=== PATIENT | female | born 1970 | race Caucasian/White ===

== ENCOUNTER 2018-09-11 05:03 | Day surgery (SDC) | payer MEDICARE, MEDICAID ==
[2018-09-09 15:45] LABS: BASOPHILS 0.4 % (0-2); EOSINOPHILS 2.5 % (0-7); HEMATOCRIT 38.7 % (36.0-48.0); HEMOGLOBIN 12.8 g/dL (12-16); IMMATURE GRANULOCYTES 0.1 % (0-5); LYMPHOCYTES 28.9 % (15-50); MCH 31.4 pg (26.0-34.0); MCHC 33.1 g/dL (31.0-37.0); MCV 95.1 fL (80.0-100.0); MEAN PLATELET VOLUME 8.7 fL (7.4-10.4); MONOCYTES 6.8 % (2-11); NEUTROPHILS 61.3 % (40-80); PLATELET COUNT 308 10x3/uL (130-400); RBC 4.07 10x6/uL (4.00-5.40); RDW 14.2 % (11.5-14.5); WBC 10.2 10x3/uL (4.8-10.8)
[2018-09-09 16:02] LABS: ANION GAP 13.1 mmol/L (8-16); CALCIUM 8.9 mg/dL (8.5-10.1); CREATININE - SERUM 1.4 mg/dL (0.6-1.3); POTASSIUM - SERUM 4.1 mmol/L (3.5-5.1)
[~2018-09-11] VITALS: Ht 167.6 cm; Wt 78.5 kg
[~2018-09-11 05:03] MED LIST: ATIVAN0.5 MG PO; BAYER CHEWABLE81 MG PO; CELEXA20 MG PO; FENOFIBRATE134 MG PO; HYDROCHLOROTHIA25 MG PO; IMITREX50 MG PO; KEPPRA1000 MG PO; LAMICTAL100 MG PO; LISINOPRIL10 MG PO; RANITIDINE HCL150 M1 PO; TOPAMAX50 MG PO; ZOCOR40 MG PO
[2018-09-11] MEDS ORDERED: EQUATE ARTHRITIS (06:16)
[2018-09-11 06:21] VITALS: BP 113/71; BMI 27.9
[2018-09-11 06:39] LABS: HCG URINE NEGATIVE (NEGATIVE)
[2018-09-11 06:44] VITALS: Ht 167.6 cm; Wt 78.5 kg
--- NOTE | 2018-09-11 08:40 | NUR ---
REC'D FROM RR. FAMILY AT BEDSIDE. UP TO BATHROOM. VOIDED. COFFEE BROUGHT TO PATIENT.
--- NOTE | 2018-09-11 08:56 | NUR ---
MARY HAUSERWali SERVED TO PATIENT.
--- NOTE | 2018-09-11 09:10 | NUR ---
SPOUSE AT BEDSIDE. EATING FL DIET.
--- NOTE | 2018-09-11 09:30 | NUR ---
TOLERATED FL DIET. IV DC'D WITH CATHETER INTACT. WRITTEN AND VERBAL DC INST. GIVEN TO PT ALONG WITH RX. VERBALIZED UNDERSTANDING.
--- NOTE | 2018-09-11 09:45 | NUR ---
DC'D HOME WITH FAMILY VIA PRIVATE VEHICLE. STABLE AT TIME OF DC.
== END 2018-09-11 09:45 | disposition home or self-care (01) ==
LOC: D.PAN 05:03
PROVIDERS: Anesthesiology; ATTEND Obstetrics & Gynecology
DX: N92.0 Excessive and frequent menstruation with regular cycle (principal); F32.9 Major depressive disorder, single episode, unspecified; G40.909 Epilepsy, unspecified, not intractable, without status epilepticus; K21.9 Gastro-esophageal reflux disease without esophagitis; I10 Essential (primary) hypertension

== ENCOUNTER → 2018-10-28 12:26 | Outpatient (CLI) | payer MEDICARE ==
[2018-09-11 06:44] VITALS: BMI 29.7
[~2018-10-28 12:26] MED LIST changes: +EQUATE ARTHRITIS
== END | disposition home or self-care (01) ==
LOC: D.RAD 12:26
PROVIDERS: ATTEND Internal Medicine Gastroenterology
DX: R13.10 Dysphagia, unspecified (principal); R12 Heartburn

== ENCOUNTER 2019-01-18 09:31 | Day surgery (SDC) | payer MEDICARE ==
[~2019-01-18] VITALS: Ht 167.6 cm; Wt 74.5 kg
[2019-01-18 09:57] LABS: HEMATOCRIT 40.3 % (36.0-48.0); HEMOGLOBIN 13.4 g/dL (12-16); MCH 31.5 pg (26.0-34.0); MCHC 33.3 g/dL (31.0-37.0); MCV 94.8 fL (80.0-100.0); MEAN PLATELET VOLUME 8.8 fL (7.4-10.4); RBC 4.25 10x6/uL (4.00-5.40); RDW 13.8 % (11.5-14.5); WBC 11.7 10x3/uL (4.8-10.8)
[2019-01-18 10:26] VITALS: BP 103/53; Ht 167.6 cm; Wt 74.5 kg
--- NOTE | 2019-01-18 11:57 | NUR ---
1157 IV DC'D. CATHETER TIP INTACT. NO BLEEDING AT SITE. BANDAID APPLIED.
--- NOTE | 2019-01-18 16:06 | OP ---
PATIENT NAME: DOMINIC LAMA MEDICAL RECORD: [id number] :66 LOCATION:D.[facility] ADMISSION DATE: SURGEON: ELISSA MEEKS DO DATE OF OPERATION: 01/18/2019 PROCEDURE: Colonoscopy with biopsies. INDICATIONS FOR PROCEDURE: Lower abdominal pain, family history positive for colon cancer in the patient's mother and acute to subacute diarrhea. SCOPE: Olympus video pediatric colonoscope. MEDICATIONS: Propofol 300 mg IV per anesthesia. WITHDRAWAL TIME: 14 minutes. ESTIMATED BLOOD LOSS: Minimal. COMPLICATIONS: None. FINDINGS: Informed consent was given. The patient was made comfortable with the above medication. After reaching an adequate level of sedation by slow IV push, the patient was placed on her left side. The endoscope was advanced under direct visualization through the rectum to the cecum and terminal ileum. The endoscope was slowly withdrawn. Mucosa was carefully examined. The prep quality was good. There were no polyps visualized on today's examination. There were no diverticula seen. Retroflexion was performed in the rectum with a normal appearing rectal wall. Random cold forceps biopsies were taken throughout the colon to submit for histopathology and to rule out the presence of microscopic colitis. The endoscope was withdrawn from the patient. The patient tolerated the procedure well and there were no complications. IMPRESSION: Normal colonoscopy to terminal ileum. PLAN AND RECOMMENDATIONS: 1. Discharge home when recovery parameters are met. 2. Follow up biopsy specimen results. 3. High fiber diet. 4. Continue current medications. 5. Follow up in clinic in 3 weeks to assure that diarrhea has resolved. If it has not resolved by that point, an ex-tag can be performed to rule out infectious reasons for diarrhea. 6. Recall colonoscopy in 5 years due to family history of colon cancer in the patient's mother. TRANSINT:[id number] Voice Confirmation ID: [id number] DOCUMENT ID: [id number] OPERATIVE REPORT [id number] DOMINIC LAMA ELISSA MEEKS DO at 1606 CC: [id number] DICTATION DATE: 01/18/19 1133 PHARMACOGNOSY TEACHER: 01/18/19 1143 [facility] 01/18/19 [place] [address]
== END 2019-01-18 12:23 | disposition home or self-care (01) ==
LOC: D.OPS 09:31
PROVIDERS: Anesthesiology; ATTEND Internal Medicine Gastroenterology
DX: Z80.0 Family history of malignant neoplasm of digestive organs (principal); R19.7 Diarrhea, unspecified

== ENCOUNTER 2019-02-15 12:44 | Day surgery (SDC) | payer MEDICARE ==
[~2019-02-15] VITALS: Ht 167.6 cm; Wt 70.0 kg
[2019-02-15 13:11] LABS: HCG URINE NEGATIVE (NEGATIVE)
[2019-02-15 13:20] LABS: HEMATOCRIT 39.9 % (36.0-48.0); HEMOGLOBIN 13.3 g/dL (12-16); MCH 31.2 pg (26.0-34.0); MCHC 33.3 g/dL (31.0-37.0); MCV 93.7 fL (80.0-100.0); MEAN PLATELET VOLUME 9.3 fL (7.4-10.4); RBC 4.26 10x6/uL (4.00-5.40); RDW 14.6 % (11.5-14.5); WBC 10.7 10x3/uL (4.8-10.8)
[2019-02-15 13:32] VITALS: BP 97/63; Ht 167.6 cm; Wt 70.0 kg
--- NOTE | 2019-02-16 15:51 | OP ---
PATIENT NAME: DOMINIC LAMA MEDICAL RECORD: [id number] :66 LOCATION:[facility] ADMISSION DATE: SURGEON: ELISSA MEEKS DO DATE OF OPERATION: 02/15/2019 PROCEDURE: EGD with biopsies. INDICATIONS FOR PROCEDURE: Dysphagia, heartburn. SCOPE: Olympus video gastroscope. MEDICATIONS: Propofol IV per anesthesia (see anesthesia report). ESTIMATED BLOOD LOSS: None. FINDINGS: Informed consent was given. The patient was made comfortable with the above medications. After reaching an adequate level of sedation by slow IV push, the patient was placed on her left side. The endoscope was advanced under direct visualization through the mouth to the second portion of the duodenum with ease. The upper, middle, and lower thirds of the esophagus appeared normal. Random cold forceps biopsies were taken from the midesophagus to submit for histopathology and to rule out the presence of eosinophils. At the GE junction, there was evidence of LA class C, reflux-induced esophagitis, and possible Ham's esophagus. Cold forcep biopsies were taken from the squamocolumnar junction to submit for histopathology. The endoscope was advanced beyond the GE junction into the stomach and retroflexed view of the cardia and fundus, which appeared normal. Throughout the body of the stomach as well as the antrum and prepyloric regions, there were some erythema and granularity consistent with mild gastritis. Random cold forceps biopsies were taken from the antrum and incisura to submit for histopathology and to rule out the presence of H. pylori. The endoscope was advanced beyond the pylorus into the duodenum, which appeared normal to the second portion. The endoscope was then withdrawn from the patient. The patient tolerated the procedure well and there were no complications. IMPRESSION: 1. LA class C reflux-induced esophagitis. 2. Mild gastritis. PLAN AND RECOMMENDATIONS: 1. Discharge home when the recovery parameters are met. 2. Follow up with the biopsy specimen results. 3. GERD diet and reflux precautions. 4. Continue current medications, which include Pepcid and omeprazole as needed. 5. Follow up in GI clinic in 1-2 months to review biopsy results and check on symptoms from upper and lower abdominal complaints including the microscopic colitis, which we are in the process of treating. TRANSINT:[id number] Voice Confirmation ID: [id number] DOCUMENT ID: [id number] OPERATIVE REPORT [id number] DOMINIC LAMA NATHAN A DO at 1551 CC: [id number] DICTATION DATE: 02/15/19 1411 TELETYPE OR VARITYPE KEYBOARD OPERATOR: 02/15/19 1738 [facility] 02/15/19 [id number] [place] [address]
== END 2019-02-15 15:05 | disposition home or self-care (01) ==
LOC: D.OPS 12:44
PROVIDERS: Anesthesiology; ATTEND Internal Medicine Gastroenterology
DX: R13.10 Dysphagia, unspecified (principal); R12 Heartburn; K21.0 Gastro-esophageal reflux disease with esophagitis; K29.70 Gastritis, unspecified, without bleeding; K52.832 Lymphocytic colitis

== ENCOUNTER → 2019-07-29 08:25 | Outpatient (CLI) | payer MEDICARE ==
[2019-02-15 13:32] VITALS: BMI 24.9
--- NOTE | ~2019-07-29 | EC ---
PATIENT:DOMINIC LAMA DATE OF SERVICE: 07/29/19 SEX: F MEDICAL RECORD: [id number] DATE OF : 66 LOCATION:[facility] AGE OF PATIENT: 48 ADMISSION DATE: 07/29/19 REFERRING PHYSICIAN: INTERPRETING PHYSICIAN: JEWEL CASTELLANO MD ECHOCARDIOGRAM REPORT ECHO CHARGES 4 ECHO COMPLETE Date: 07/29/19 CLINICAL DIAGNOSIS: HEART MURMUR ECHOCARDIOGRAPHIC MEASUREMENTS (adult normal given) AC root (d.<3.7cm) 3.4 cm LV Septum d (<1.2 cm> 1.3 cm Valve Excursion 1.3 cm LV Septum (systole) 1.5 cm Left Atria (s.<4.0cm> 3.8 cm LVPW d(<1.2cm) 1.4 cm RV (d.<2.3cm) 3.2 cm LVPW (sytole) 1.5 cm LV diastole(<5.6CM) 4.8 cm MV E-F(>70mm/sec) cm LV systole 3.2 cm LVOT Diameter 1.6 cm MV exc.(>10mm) 1.5 cm Est.ejection fraction (50-75%) % DOPPLER: LVIT cm/sec A 57.0 cm/sec E 103.0 cm/sec LA cm/sec RVSP 33 mmHg LVOT 95 cm/sec AOP1/2T m/s Asc. Ao 128 cm/sec RVOT 72 cm/sec RA cm/sec PA 97 cm/sec AV Gradient Peak 6.58 mmHg AV Mean 3.33 mmHg AV Area 1.7 cm MV Gradient Peak 4.76 mmHg MV Mean 1.74 mmHg MV Area cm COMMENTS: Helper Coordinator: 2 MIGUE MONSIVAIS Customer Services Manager: 3 Dr. Waite TAPE# PACS Pericardial Effusion N DATE OF SERVICE: Adequate 2D, color flow imaging, spectral Doppler, and M-Mode. LVH is present. LV internal dimension is normal. Wall motion is normal. EF is greater than or equal to 55%. Aortic valve is sclerotic. No evidence of stenosis by Doppler interrogation. Left atrium is normal 3.8 cm. Mitral valve shows no prolapse. Trace MR. Right-sided chambers are grossly normal. Mild TR. ECHOCARDIOGRAM REPORT [id number] DOMINIC LAMA TRANSINT:[id number] Voice Confirmation ID: [id number] DOCUMENT ID: [id number] JEWEL CASTELLANO MD CC: [id number] DICTATION DATE: 07/29/19 1530 COOPERATIVE EDUCATION COORDINATOR: 07/29/19 1747 [id number] [place] [id number]
== END | disposition home or self-care (01) ==
LOC: D.HCCARDIO 07-14 10:30 → D.HCCECHO 07-14 11:00
PROVIDERS: ATTEND Internal Medicine Cardiovascular Disease
DX: I20.9 Angina pectoris, unspecified (principal); R01.1 Cardiac murmur, unspecified

== ENCOUNTER 2020-05-19 07:00 | Day surgery (SDC) | payer MEDICARE, MEDICAID ==
[2020-05-16 12:46] LABS: BASOPHILS 0.4 % (0-2); EOSINOPHILS 3.2 % (0-7); HEMATOCRIT 40.9 % (36.0-48.0); HEMOGLOBIN 13.3 g/dL (12-16); IMMATURE GRANULOCYTES 0.3 % (0-5); LYMPHOCYTE ABS# 2.97 10x3/uL (1.18-3.74); LYMPHOCYTES 24.8 % (15-50); MCH 29.7 pg (26.0-34.0); MCHC 32.5 g/dL (31.0-37.0); MCV 91.3 fL (80.0-100.0); MEAN PLATELET VOLUME 9.1 fL (7.4-10.4); MONOCYTES 7.7 % (2-11); NEUTROPHIL ABS# 7.65 10x3/uL (1.56-6.13); NEUTROPHILS 63.6 % (40-80); PLATELET COUNT 372 10x3/uL (130-400); RBC 4.48 10x6/uL (4.00-5.40); RDW 14.6 % (11.5-14.5)
[2020-05-16 12:56] LABS: ANION GAP 11.8 mmol/L (8-16); CALCIUM 9.5 mg/dL (8.5-10.1); CARBON DIOXIDE 26.7 mmol/L (21.0-32.0); CREATININE - SERUM 1.5 mg/dL (0.6-1.3); POTASSIUM - SERUM 3.5 mmol/L (3.5-5.1)
[~2020-05-19] VITALS: Ht 167.6 cm; Wt 78.9 kg
[~2020-05-19 07:00] MED LIST changes: +ALLERGY OTC PO
[2020-05-19 08:17] VITALS: BP 112/73; Ht 167.6 cm; Wt 78.9 kg
[2020-05-19 08:27] LABS: HCG URINE NEGATIVE (NEGATIVE)
--- NOTE | 2020-05-19 10:34 | NUR ---
1020 O2 SAT 85% PT A SMOKER. O2 2LITERS APPLIED. HOB ELEVATED.
--- NOTE | 2020-05-19 11:37 | NUR ---
1100 IV REMOVED AND INSTRUCTIONS GIVEN. PT VOIDED
--- NOTE | 2020-05-26 13:49 | OP ---
PATIENT NAME: DOMINIC LAMA MEDICAL RECORD: [id number] :66 LOCATION:[facility] ADMISSION DATE: SURGEON: STACI BARCENAS MD DATE OF OPERATION: 05/19/2020 PREOPERATIVE DIAGNOSIS: Pelvic pain. POSTOPERATIVE DIAGNOSES: 1. Pelvic pain. 2. Pelvic adhesions. 3. Endometriosis. PROCEDURE: Operative laparoscopy and lysis of adhesions. SURGEON: Staci Barcenas MD ANESTHESIA: General endotracheal. INTRAVENOUS FLUIDS: Per anesthesia record. ESTIMATED BLOOD LOSS: Minimal. COMPLICATIONS: None apparent. SPECIMENS: None. FINDINGS: 1. Extensive adhesive disease involving the pelvic sidewalls and bilateral fallopian tubes. 2. Omental adhesions involving the anterior abdominal wall. 3. Multiple areas of pelvic wall endometriosis. DESCRIPTION OF PROCEDURE: The patient was taken to the operating room where general anesthesia was achieved without difficulty. The patient was then prepped and draped in normal sterile fashion in the dorsal lithotomy position. The bladder was drained of approximately 100 cc of clear yellow urine and a sponge stick was placed into the vagina for uterine elevation. Following prep, a 5-mm incision was made infraumbilically and the 5 mm bladeless trocar was used to enter the intraperitoneal space under direct visualization of the laparoscope. The introducer was removed and the hysteroscope was placed into the port and intraperitoneal placement was confirmed. The patient was then insufflated with an opening pressure of less than 8 mmHg. Following insufflation, a second 5-mm incision was made in the midline approximately 5 cm superior to the pubic symphysis. A second 5-mm bladeless trocar was used to enter the intraperitoneal space under direct visualization of the laparoscope. Attention was then turned to the left lower quadrant where a 5-mm incision was made in the skin and a third 5-mm trocar was then placed into the abdomen under direct visualization of the laparoscope. Survey of the abdomen and pelvis was performed. Adhesions were noted between the distal fallopian tubes bilaterally and the pelvic sidewall. The Thunderbeat electrocautery was then used to desiccate and cut these adhesions from the fimbriated ends. Attention was then turned to a large omental adhesion associated with the anterior abdominal wall. The Thunderbeat was used to dissect the omental adhesion from the anterior abdominal wall with minimal bleeding noted. Several other areas of bowel and sidewall adhesions were taken down with the Thunderbeat with good hemostasis OPERATIVE REPORT [id number] DOMINIC LAMA noted from all surgical sites. The patient was then desufflated and all surgical sites were found to be hemostatic. Full desufflation was performed and the trocars were removed without difficulty. The trocar sites were repaired with 3-0 Vicryl in an interrupted fashion times 3. The sponge stick was removed from the vagina. The patient tolerated the procedure well and was transferred to postanesthesia recovery stable without incident. TRANSINT:[id number] Voice Confirmation ID: [id number] DOCUMENT ID: [id number] STACI BARCENAS MD at 1349 CC: [id number] DICTATION DATE: 05/25/20 1458 LANDSCAPE LABORER: 05/25/20 1525 [facility] 05/19/20 [id number] [place] [address]
== END 2020-05-19 11:35 | disposition home or self-care (01) ==
LOC: D.OPS 07:00
PROVIDERS: Anesthesiology; ATTEND Obstetrics & Gynecology
DX: R10.2 Pelvic and perineal pain (principal); N73.6 Female pelvic peritoneal adhesions (postinfective); N80.3 Endometriosis of pelvic peritoneum; F32.9 Major depressive disorder, single episode, unspecified; K21.9 Gastro-esophageal reflux disease without esophagitis; I10 Essential (primary) hypertension; G43.909 Migraine, unspecified, not intractable, without status migrainosus

== ENCOUNTER 2020-08-17 07:43 | Emergency (ER) | payer MEDICARE, MEDICAID ==
[~2020-08-17] VITALS: Ht 167.6 cm; Wt 76.8 kg
[2020-08-17 07:49] VITALS: BP 118/67; Ht 167.6 cm; Wt 76.8 kg
[2020-08-17 08:15] LABS: BASOPHILS 0.5 % (0-2); EOSINOPHILS 2.4 % (0-7); HEMATOCRIT 41.1 % (36.0-48.0); HEMOGLOBIN 13.2 g/dL (12-16); MCH 29.1 pg (26.0-34.0); MCHC 32.2 g/dL (31.0-37.0); MCV 90.3 fL (80.0-100.0); MEAN PLATELET VOLUME 7.3 fL (7.4-10.4); MONOCYTES 7.8 % (2-11); NEUTROPHILS 73.3 % (40-80); PLATELET COUNT 419 10x3/uL (130-400); RBC 4.56 10x6/uL (4.00-5.40); RDW 15.9 % (11.5-14.5); WBC 11.7 10x3/uL (4.8-10.8)
[2020-08-17 08:38] LABS: CALC OSMOLALITY 280 mosm/kg (275-300); CALCIUM 9.2 mg/dL (8.5-10.1); CARBON DIOXIDE 28.4 mmol/L (21.0-32.0); CHLORIDE - SERUM 102 mmol/L (98-107); CREATININE - SERUM 1.3 mg/dL (0.6-1.3); GLUCOSE 99 mg/dL (74-106); POTASSIUM - SERUM 3.9 mmol/L (3.5-5.1); SODIUM 139 mmol/L (136-145); UREA NITROGEN 20 mg/dL (7-18); eGFR NON AFRICAN AMERICAN 46 mL/min (90-120)
[2020-08-17 08:47] LABS: ALBUMIN 3.6 g/dL (3.4-5.0); ALKALINE PHOSPHATASE 66 U/L (30-120); ALT (SGPT) 13 U/L (10-68); AMYLASE - SERUM 57 U/L (25-115); BILIRUBIN - TOTAL 0.18 mg/dL (0.2-1.3); LIPASE 146 U/L (73-393); PROTEIN - SERUM 7.3 g/dL (6.4-8.2)
[2020-08-17 08:48] LABS: TROPONIN-I < 0.017 ng/mL (0.000-0.060)
[2020-08-17] MEDS ORDERED: LOMOTIL 2.5-0.1 EAC1 PO (10:43)
[2020-08-17] MEDS ORDERED: PHENERGAN25 M1 PO (10:43)
== END 2020-08-17 11:16 | disposition home or self-care (01) ==
LOC: D.ER 07:43
PROVIDERS: Emergency Medicine
DX: N83.202 Unspecified ovarian cyst, left side (principal); A08.4 Viral intestinal infection, unspecified; I10 Essential (primary) hypertension; K21.9 Gastro-esophageal reflux disease without esophagitis